=== PATIENT | female | born 1960 | race Caucasian/White ===

== ENCOUNTER → 2017-03-26 | Outpatient (CLI) | payer BC ==
[~2017-03-26] MED LIST: COZAAR 50MG50 MG/TAB PO
== END ==
LOC: MC.RAD 09:40
DX: Z12.31 Encounter for screening mammogram for malignant neoplasm of breast (principal)

== ENCOUNTER 2017-04-02 08:31 | Day surgery (SDC) | payer BC ==
[~2017-04-02] VITALS: Ht 157.5 cm; Wt 76.1 kg
[2017-04-02] MEDS ORDERED: COZAAR 50MG50 MG/TAB PO (08:44)
[2017-04-02 08:57] VITALS: BP 148/67; PULSE 59; TEMP 97.1
[2017-04-02 10:40] VITALS: BP 143/73; PULSE 63; TEMP 97
[2017-04-02 10:55] VITALS: BP 128/74; PULSE 56
[2017-04-02 11:10] VITALS: BP 126/74; PULSE 60
[2017-04-02 11:25] VITALS: BP 125/81; PULSE 60
[2017-04-02 14:39] VITALS: BP 112/67; PULSE 58
== END 2017-04-02 11:50 | disposition home or self-care (01) ==
LOC: SDCO 08:31
DX: Z12.11 Encounter for screening for malignant neoplasm of colon (principal); D12.8 Benign neoplasm of rectum; D64.0 Hereditary sideroblastic anemia; I10 Essential (primary) hypertension; K57.30 Diverticulosis of large intestine without perforation or abscess without bleeding
CPT/HCPCS: OP; J2250; J2405; J3010; J7030